=== PATIENT | male | born 1990 | race Caucasian/White ===

== ENCOUNTER 2019-10-05 19:24 | Inpatient (IN) | payer MEDICAID ==
[~2019-10-05] VITALS: Ht 180.3 cm; Wt 63.6 kg
[~2019-10-05 19:24] MED LIST: ONDA4TAB59 PO
[2019-10-05] MEDS ORDERED: normal saline 1000ML IV soln IV ONE (19:40)
[2019-10-05] MEDS ORDERED: CefTRIAXone 2gm/D5W 50ml 50 ML IV ONE (19:40)
[2019-10-05] MEDS ORDERED: vancomycin/NS 1 GM ADD-VANTAGE 250 ML IV ONE (19:40)
[2019-10-05] MEDS ORDERED: TETanus/Pertussis (Acell)/Diphther VAC/PF (Tdap-Adult) 0.5ml syringe IMVAC ONE (19:45)
[2019-10-05 19:51] LABS: BASOPHILS # (AUTO) 0.1 X10'3 (0-0.2); BASOPHILS % (AUTO) 0.5 % (0-1); EOSINOPHILS # (AUTO) 0.1 X10'3 (0-0.9); HEMATOCRIT 46.7 % (42.0-52.0); HEMOGLOBIN 15.9 g/dl (14.0-17.9); LYMPHOCYTES # (AUTO) 1.2 X10'3 (1.1-4.8); LYMPHOCYTES % (AUTO) 9.4 % (21-51); MEAN CORPUSCULAR HEMOGLOBIN 31.5 PG (27.0-31.0); MEAN CORPUSCULAR HGB CONC 34.1 g/dL (33.0-36.5); MEAN CORPUSCULAR VOLUME 92.4 FL (78-98); MEAN PLATELET VOLUME 6.9 FL (7.4-10.4); MONOCYTES # (AUTO) 0.8 X10'3 (0-0.9); MONOCYTES % (AUTO) 6.3 % (2-12); NEUTROPHILS # (AUTO) 10.5 X10'3 (1.8-7.7); NEUTROPHILS % (AUTO) 82.8 % (42-75); PLATELET COUNT 294 X10'3 (140-440); RED BLOOD COUNT 5.05 X10'6 (4.70-6.10); RED CELL DISTRIBUTION WIDTH 13.4 % (11.5-14.5); WHITE BLOOD COUNT 12.7 X10'3 (4.5-11.0)
[2019-10-05 20:04] LABS: PARTIAL THROMBOPLASTIN TIME 30 SECONDS (22-32)
[2019-10-05 20:08] LABS: ALANINE AMINOTRANSFERASE 60 U/L (12-78); ALBUMIN 3.8 G/DL (3.4-5.0); ALBUMIN/GLOBULIN RATIO 0.8 (1.1-1.5); ALKALINE PHOSPHATASE 199 IU/L (46-116); ANION GAP 4 (8-16); ASPARTATE AMINO TRANSFERASE 42 U/L (10-37); BILIRUBIN,TOTAL 0.5 MG/DL (0.1-1.0); BLOOD UREA NITROGEN 13 MG/DL (7-18); BUN/CREATININE RATIO 11.5 (5.4-32.0); CHLORIDE 100 MMOL/L (99-107); CREATININE 1.13 MG/DL (0.60-1.10); GLUCOSE 93 MG/DL (70-104); POTASSIUM 4.1 MMOL/L (3.5-5.1); SODIUM 136 MMOL/L (135-145); TOTAL CARBON DIOXIDE 31.8 MMOL/L (24-32); TOTAL PROTEIN 8.4 G/DL (6.4-8.2); eGFR 77 ML/MIN
[2019-10-05] MEDS ORDERED: morphine 2 MG/ML inj. syringe IV PRN (20:45)
[2019-10-05] MEDS: CefTRIAXone/D5W-Rocephin 1gm 50 ML IV SCH (20:45)
[2019-10-05] MEDS ORDERED: magnesium Cl slow-release 64mg tablet PO PRN (20:45)
[2019-10-05] MEDS ORDERED: magnesium 4gm in 100ml NS 100 ML IV PRN (20:45)
[2019-10-05] MEDS ORDERED: magnesium 2GM in 50ml NS 50 ML IV PRN (20:45)
[2019-10-05] MEDS ORDERED: ondansetron/PF 4mg/2ml inj IV PRN (20:45)
[2019-10-05] MEDS ORDERED: potassium Cl 20 mEq SR tablet PO PRN ×2 (20:45)
[2019-10-05] MEDS ORDERED: acetaminophen 325mg tablet PO PRN (20:45)
[2019-10-05] MEDS ORDERED: potassium CL 10mEq/100ml bag 100 ML IV PRN ×2 (20:45)
[2019-10-05] MEDS ORDERED: SULF1TAB49 PO (20:48)
[2019-10-05] MEDS ORDERED: temazepam 15mg capsule PO PRN (21:00)
--- NOTE | 2019-10-05 21:20 | NUR ---
Photo taken of Left Hand and placed on pt's chart.
[2019-10-05 21:30] VITALS: BP 138/66
--- NOTE | 2019-10-05 21:39 | NUR ---
Reported off to Prudence RN. Patient awake and alert on room air in no apparent distress. Call light and items of frequent use within reach.
--- NOTE | 2019-10-05 21:40 | NUR ---
I have reviewed and agree with all interventions, assessments performed and documented by AILYN Crockett.
[2019-10-05] MEDS: HYDROcodone/acetaminophen 5mg/325mg tablet PO PRN (21:49)
[2019-10-05] MEDS: normal saline 1000ml 1,000 ML IV SCH (21:50)
[2019-10-06 00:44] LABS: CLARITY,URINE CLEAR (Clear); COLOR,URINE YELLOW (Yellow); GLUCOSE, URINE NEGATIVE (Neg); KETONES,URINE NEGATIVE (Neg); LEUKOCYTE ESTERASE ,URINE NEGATIVE (Neg); NITRITES, URINE NEGATIVE (Neg); OCCULT BLOOD,URINE NEGATIVE (Neg); PH,URINE 7.5 (4.8-8.0); PROTEIN,URINE NEGATIVE (Neg)
[2019-10-06 00:48] LABS: UA COLLECTION TYPE CLN CATCH MIDSTREAM
[2019-10-06] MEDS: HYDROcodone/acetaminophen 5mg/325mg tablet PO PRN ×2 (04:47→19:54)
[2019-10-06 05:27] LABS: BASOPHILS # (AUTO) 0.1 X10'3 (0-0.2); BASOPHILS % (AUTO) 0.6 % (0-1); EOSINOPHILS % (AUTO) 0.4 % (0-6); HEMATOCRIT 44.6 % (42.0-52.0); HEMOGLOBIN 15.2 g/dl (14.0-17.9); LYMPHOCYTES # (AUTO) 1.2 X10'3 (1.1-4.8); LYMPHOCYTES % (AUTO) 11.2 % (21-51); MEAN CORPUSCULAR HEMOGLOBIN 31.4 PG (27.0-31.0); MEAN CORPUSCULAR VOLUME 92.3 FL (78-98); MEAN PLATELET VOLUME 7.5 FL (7.4-10.4); MONOCYTES # (AUTO) 1.2 X10'3 (0-0.9); MONOCYTES % (AUTO) 10.5 % (2-12); NEUTROPHILS # (AUTO) 8.5 X10'3 (1.8-7.7); NEUTROPHILS % (AUTO) 77.3 % (42-75); PLATELET COUNT 278 X10'3 (140-440); RED BLOOD COUNT 4.83 X10'6 (4.70-6.10); RED CELL DISTRIBUTION WIDTH 13.2 % (11.5-14.5)
[2019-10-06 05:29] LABS: ANION GAP 8 (8-16); BLOOD UREA NITROGEN 10 MG/DL (7-18); BUN/CREATININE RATIO 9.7 (5.4-32.0); CALCIUM 8.3 MG/DL (8.5-10.1); CHLORIDE 103 MMOL/L (99-107); CREATININE 1.03 MG/DL (0.60-1.10); GLUCOSE 127 MG/DL (70-104); MAGNESIUM 1.8 MG/DL (1.5-2.4); POTASSIUM 4.5 MMOL/L (3.5-5.1); SODIUM 135 MMOL/L (135-145); TOTAL CARBON DIOXIDE 23.8 MMOL/L (24-32); eGFR 85 ML/MIN
[2019-10-06 06:00] VITALS: BP 116/67
--- NOTE | 2019-10-06 06:19 | NUR ---
Problems reprioritized. Patient report given, questions answered & plan of care reviewed with CLIFTON ROBERTSON.
[2019-10-06] MEDS: CefTRIAXone/D5W-Rocephin 1gm 50 ML IV SCH (07:15)
[2019-10-06] MEDS: K and/or MAG REPLACEMENT MC SCH ×2 (08:00→20:00)
[2019-10-06] MEDS: docusate sod 100mg capsule PO SCH ×2 (08:00→19:53)
[2019-10-06] MEDS ORDERED: vancomycin/NS 1 GM ADD-VANTAGE 250 ML IV SCH (08:00)
[2019-10-06] MEDS: vancomycin/NS 1 GM ADD-VANTAGE 250 ML IV SCH ×2 (08:09→17:24)
[2019-10-06 09:48] VITALS: BP 121/72
[2019-10-06] MEDS ORDERED: cefepime 1GM in D5W 50mL 50 ML IV SCH (13:40)
[2019-10-06 15:01] LABS: URINE AMPHETAMINE SCREEN POSITIVE (Neg); URINE BARBITUATE SCREEN NEGATIVE (Neg); URINE BENZODIAZEPINES SCREEN NEGATIVE (Neg); URINE CANNABINOID SCREEN POSITIVE (Neg); URINE COCAINE SCREEN NEGATIVE (Neg); URINE METHADONE SCREEN NEGATIVE (Neg); URINE OPIATE SCREEN POSITIVE (Neg); URINE PHENCYCLIDINE SCREEN NEGATIVE (Neg)
[2019-10-06 18:00] VITALS: BP 126/72
--- NOTE | 2019-10-06 18:23 | NUR ---
Patient in room ORTH[facility] 4011. I have received report from Angela ROBERTSON and had the opportunity to ask questions and assume patient care.
--- NOTE | 2019-10-06 18:26 | NUR ---
Problems reprioritized. Patient report given, questions answered & plan of care reviewed with Karen ROBERTSON.
[2019-10-06] MEDS: lactobacillus rhamnosus 10,000 MMU CELLS/CAPSULE PO SCH (19:53)
[2019-10-06 22:00] VITALS: BP 106/59
[2019-10-06] MEDS: cefepime 1GM in D5W 50mL 50 ML IV SCH (22:02)
[2019-10-06] MEDS ORDERED: VANCOMYCIN LEVEL IV ONE (23:30)
[2019-10-07] MEDS: vancomycin/NS 1 GM ADD-VANTAGE 250 ML IV SCH (00:36)
[2019-10-07 05:32] LABS: BASOPHILS # (AUTO) 0.1 X10'3 (0-0.2); EOSINOPHILS # (AUTO) 0.2 X10'3 (0-0.9); EOSINOPHILS % (AUTO) 1.3 % (0-6); HEMOGLOBIN 15.2 g/dl (14.0-17.9); LYMPHOCYTES # (AUTO) 1.9 X10'3 (1.1-4.8); LYMPHOCYTES % (AUTO) 14.1 % (21-51); MEAN CORPUSCULAR HEMOGLOBIN 31.4 PG (27.0-31.0); MEAN CORPUSCULAR HGB CONC 33.8 g/dL (33.0-36.5); MEAN CORPUSCULAR VOLUME 92.9 FL (78-98); MEAN PLATELET VOLUME 7.6 FL (7.4-10.4); MONOCYTES # (AUTO) 1.2 X10'3 (0-0.9); MONOCYTES % (AUTO) 9.3 % (2-12); NEUTROPHILS # (AUTO) 9.9 X10'3 (1.8-7.7); NEUTROPHILS % (AUTO) 74.3 % (42-75); PLATELET COUNT 288 X10'3 (140-440); RED BLOOD COUNT 4.84 X10'6 (4.70-6.10); RED CELL DISTRIBUTION WIDTH 13.3 % (11.5-14.5); WHITE BLOOD COUNT 13.3 X10'3 (4.5-11.0)
[2019-10-07 05:46] LABS: ALBUMIN 2.9 G/DL (3.4-5.0); ANION GAP 8 (8-16); BLOOD UREA NITROGEN 11 MG/DL (7-18); BUN/CREATININE RATIO 13.3 (5.4-32.0); CALCIUM 8.8 MG/DL (8.5-10.1); CHLORIDE 103 MMOL/L (99-107); CREATININE 0.83 MG/DL (0.60-1.10); GLUCOSE 112 MG/DL (70-104); POTASSIUM 4.3 MMOL/L (3.5-5.1); SODIUM 138 MMOL/L (135-145); TOTAL CARBON DIOXIDE 27.5 MMOL/L (24-32); eGFR > 90 ML/MIN
[2019-10-07] MEDS: cefepime 1GM in D5W 50mL 50 ML IV SCH ×3 (06:29→21:45)
--- NOTE | 2019-10-07 06:36 | NUR ---
Problems reprioritized. Patient report given, questions answered & plan of care reviewed with CAROLIN ROBERTSON.
--- NOTE | 2019-10-07 06:56 | NUR ---
Patient in room ORTHO 4011. I have received report from Karen ROBERTSON and had the opportunity to ask questions and assume patient care.
[2019-10-07 07:04] VITALS: BP 113/58
[2019-10-07] MEDS: VANCOMYCIN 1,500MG inj. 1,500 MG in normal saline 500ml IV soln 500 ML IV SCH ×3 (07:55→23:10)
[2019-10-07] MEDS: lactobacillus rhamnosus 10,000 MMU CELLS/CAPSULE PO SCH ×2 (07:55→19:27)
[2019-10-07] MEDS: HYDROcodone/acetaminophen 5mg/325mg tablet PO PRN ×3 (07:57→19:27)
[2019-10-07] MEDS: docusate sod 100mg capsule PO SCH ×2 (08:00→19:27)
[2019-10-07] MEDS: K and/or MAG REPLACEMENT MC SCH ×2 (08:00→19:55)
--- NOTE | 2019-10-07 09:09 | NUR ---
Left hand wrapped in bulky dressing, will eval when Orhtopedist evals for surgery today Addendum: 10/07/19 at 0914 by Iliana Kothari RN Amended: Links added.
[2019-10-07 11:59] VITALS: BP 112/62
--- NOTE | 2019-10-07 12:27 | NUR ---
DR. NICOLE CASIANO, NO SURGERY TODAY. PHOTO TAKEN, RE-WRAPPED WOUND, CLEAN, DRY AND INTACT DRESSING
--- NOTE | 2019-10-07 14:58 | NUR ---
paged Dr. Lucio patient in room 4012 Shantal Moya Carleton J. would like a nicotine patch. He smokes 2 packs per day. Thank you, Sujata RN #[id number]
[2019-10-07 18:00] VITALS: BP 112/68
--- NOTE | 2019-10-07 18:00 | NUR ---
Problems reprioritized. Patient report given, questions answered & plan of care reviewed with Lisa ROBERTSON.
--- NOTE | 2019-10-07 18:53 | NUR ---
Patient in room ORTH[facility] 4011. I have received report from mg Barrientos and had the opportunity to ask questions and assume patient care.
[2019-10-07] MEDS: heparin, porcine 5000 units/ml vial SQ SCH (19:28)
[2019-10-07] MEDS: normal saline 1000ml 1,000 ML IV SCH (20:41)
[2019-10-07 22:00] VITALS: BP 118/62
[2019-10-07] MEDS ORDERED: VANCOMYCIN LEVEL IV ONE (23:30)
[2019-10-08] MEDS: HYDROcodone/acetaminophen 5mg/325mg tablet PO PRN ×5 (01:14→23:55)
[2019-10-08] MEDS: cefepime 1GM in D5W 50mL 50 ML IV SCH (05:07)
[2019-10-08 05:21] LABS: BASOPHILS # (AUTO) 0.1 X10'3 (0-0.2); BASOPHILS % (AUTO) 0.5 % (0-1); EOSINOPHILS # (AUTO) 0.2 X10'3 (0-0.9); EOSINOPHILS % (AUTO) 1.4 % (0-6); HEMATOCRIT 44.8 % (42.0-52.0); HEMOGLOBIN 15.3 g/dl (14.0-17.9); LYMPHOCYTES # (AUTO) 1.8 X10'3 (1.1-4.8); LYMPHOCYTES % (AUTO) 11.8 % (21-51); MEAN CORPUSCULAR HEMOGLOBIN 31.4 PG (27.0-31.0); MEAN CORPUSCULAR HGB CONC 34.1 g/dL (33.0-36.5); MEAN CORPUSCULAR VOLUME 91.9 FL (78-98); MEAN PLATELET VOLUME 7.4 FL (7.4-10.4); MONOCYTES # (AUTO) 1.2 X10'3 (0-0.9); MONOCYTES % (AUTO) 8.1 % (2-12); NEUTROPHILS # (AUTO) 11.7 X10'3 (1.8-7.7); NEUTROPHILS % (AUTO) 78.2 % (42-75); PLATELET COUNT 316 X10'3 (140-440); RED BLOOD COUNT 4.88 X10'6 (4.70-6.10)
[2019-10-08 05:36] LABS: ALBUMIN 2.8 G/DL (3.4-5.0); ANION GAP 6 (8-16); BLOOD UREA NITROGEN 10 MG/DL (7-18); BUN/CREATININE RATIO 11.2 (5.4-32.0); CALCIUM 8.6 MG/DL (8.5-10.1); CHLORIDE 103 MMOL/L (99-107); CREATININE 0.89 MG/DL (0.60-1.10); GLUCOSE 107 MG/DL (70-104); POTASSIUM 4.2 MMOL/L (3.5-5.1); SODIUM 138 MMOL/L (135-145); TOTAL CARBON DIOXIDE 28.6 MMOL/L (24-32); eGFR > 90 ML/MIN
[2019-10-08 06:00] VITALS: BP 126/74
--- NOTE | 2019-10-08 06:23 | NUR ---
Problems reprioritized. Patient report given, questions answered & plan of care reviewed with mg Roy.
--- NOTE | 2019-10-08 06:39 | NUR ---
Patient in room ORTH[facility] 4011. I have received report from JEANNIE ROBERTSON and had the opportunity to ask questions and assume patient care.
[2019-10-08] MEDS: heparin, porcine 5000 units/ml vial SQ SCH ×2 (07:56→19:16)
[2019-10-08] MEDS: docusate sod 100mg capsule PO SCH ×2 (07:56→19:21)
[2019-10-08] MEDS: lactobacillus rhamnosus 10,000 MMU CELLS/CAPSULE PO SCH ×2 (07:56→19:15)
[2019-10-08] MEDS: VANCOMYCIN 1,500MG inj. 1,500 MG in normal saline 500ml IV soln 500 ML IV SCH ×3 (07:56→23:55)
[2019-10-08] MEDS: K and/or MAG REPLACEMENT MC SCH ×2 (08:00→19:21)
[2019-10-08 11:05] VITALS: BP 109/50
[2019-10-08 18:00] VITALS: BP 124/71
--- NOTE | 2019-10-08 18:08 | NUR ---
Problems reprioritized. Patient report given, questions answered & plan of care reviewed with AILYN henderson.
--- NOTE | 2019-10-08 18:10 | NUR ---
Problems reprioritized. Patient report given, questions answered & plan of care reviewed with mg Roy.
[2019-10-08 22:00] VITALS: BP 107/48
[2019-10-09 05:52] LABS: BASOPHILS # (AUTO) 0.1 X10'3 (0-0.2); BASOPHILS % (AUTO) 0.6 % (0-1); EOSINOPHILS # (AUTO) 0.5 X10'3 (0-0.9); EOSINOPHILS % (AUTO) 3.9 % (0-6); HEMATOCRIT 45.1 % (42.0-52.0); HEMOGLOBIN 15.1 g/dl (14.0-17.9); LYMPHOCYTES % (AUTO) 16.8 % (21-51); MEAN CORPUSCULAR HEMOGLOBIN 31.2 PG (27.0-31.0); MEAN CORPUSCULAR HGB CONC 33.6 g/dL (33.0-36.5); MEAN PLATELET VOLUME 7.3 FL (7.4-10.4); MONOCYTES % (AUTO) 8.1 % (2-12); NEUTROPHILS # (AUTO) 8.4 X10'3 (1.8-7.7); NEUTROPHILS % (AUTO) 70.6 % (42-75); PLATELET COUNT 333 X10'3 (140-440); RED BLOOD COUNT 4.85 X10'6 (4.70-6.10); RED CELL DISTRIBUTION WIDTH 12.8 % (11.5-14.5); WHITE BLOOD COUNT 11.9 X10'3 (4.5-11.0)
[2019-10-09 06:01] LABS: ALBUMIN 2.7 G/DL (3.4-5.0); ANION GAP 6 (8-16); BLOOD UREA NITROGEN 11 MG/DL (7-18); BUN/CREATININE RATIO 13.8 (5.4-32.0); CALCIUM 9.1 MG/DL (8.5-10.1); CHLORIDE 104 MMOL/L (99-107); GLUCOSE 110 MG/DL (70-104); MAGNESIUM 2.1 MG/DL (1.5-2.4); POTASSIUM 4.2 MMOL/L (3.5-5.1); SODIUM 138 MMOL/L (135-145); TOTAL CARBON DIOXIDE 27.7 MMOL/L (24-32); eGFR > 90 ML/MIN
--- NOTE | 2019-10-09 06:40 | NUR ---
Problems reprioritized. Patient report given, questions answered & plan of care reviewed with AILYN CARLISLE.
[2019-10-09 07:04] VITALS: BP 96/79
[2019-10-09] MEDS: VANCOMYCIN 1,500MG inj. 1,500 MG in normal saline 500ml IV soln 500 ML IV SCH ×3 (07:54→23:45)
[2019-10-09] MEDS: lactobacillus rhamnosus 10,000 MMU CELLS/CAPSULE PO SCH ×2 (07:55→19:49)
[2019-10-09] MEDS: HYDROcodone/acetaminophen 5mg/325mg tablet PO PRN ×2 (07:55→19:50)
[2019-10-09] MEDS: K and/or MAG REPLACEMENT MC SCH ×2 (07:55→20:00)
[2019-10-09] MEDS: heparin, porcine 5000 units/ml vial SQ SCH ×2 (08:00→19:49)
[2019-10-09] MEDS: docusate sod 100mg capsule PO SCH ×2 (08:00→19:48)
--- NOTE | 2019-10-09 12:26 | NUR ---
Initial: Pt admit w/ L hand laceration and sepsis per MD. Positive for meth on admit. PO 75-100% avg regular diet meeting needs given DX and current wt. LBM 10/07. No nutrition concerns at this time. Will continue to monitor. Rec: 1. continue regular diet 2. bowel care as needed 3. wt per rx Addendum: 10/09/19 at [address] Amended: Links added.
[2019-10-09 18:00] VITALS: BP 151/73
--- NOTE | 2019-10-09 18:22 | NUR ---
REPORT TO SHANNON ROBERTSON
--- NOTE | 2019-10-09 18:40 | NUR ---
Patient in room [facility]TH[facility] 4011. I have received report from Susan ROBERTSON and had the opportunity to ask questions and assume patient care. Pt sitting up in bed eating dinner, no signs of distress, will continue to monitor.
[2019-10-09 22:12] VITALS: BP 127/74
[2019-10-10] VITALS (16 sets, daily range): BP systolic 108–153; BP diastolic 61–97
[2019-10-10 06:10] LABS: ALBUMIN 2.7 G/DL (3.4-5.0); ANION GAP 9 (8-16); BASOPHILS # (AUTO) 0.1 X10'3 (0-0.2); BLOOD UREA NITROGEN 14 MG/DL (7-18); BUN/CREATININE RATIO 15.9 (5.4-32.0); CHLORIDE 104 MMOL/L (99-107); CREATININE 0.88 MG/DL (0.60-1.10); EOSINOPHILS # (AUTO) 0.7 X10'3 (0-0.9); EOSINOPHILS % (AUTO) 6.3 % (0-6); GLUCOSE 106 MG/DL (70-104); HEMATOCRIT 44.1 % (42.0-52.0); HEMOGLOBIN 15.1 g/dl (14.0-17.9); LYMPHOCYTES # (AUTO) 2.5 X10'3 (1.1-4.8); LYMPHOCYTES % (AUTO) 24.2 % (21-51); MEAN CORPUSCULAR HEMOGLOBIN 31.7 PG (27.0-31.0); MEAN CORPUSCULAR HGB CONC 34.2 g/dL (33.0-36.5); MEAN CORPUSCULAR VOLUME 92.7 FL (78-98); MEAN PLATELET VOLUME 7.3 FL (7.4-10.4); MONOCYTES # (AUTO) 0.9 X10'3 (0-0.9); MONOCYTES % (AUTO) 8.4 % (2-12); NEUTROPHILS # (AUTO) 6.3 X10'3 (1.8-7.7); NEUTROPHILS % (AUTO) 60.1 % (42-75); PLATELET COUNT 365 X10'3 (140-440); POTASSIUM 4.3 MMOL/L (3.5-5.1); RED BLOOD COUNT 4.76 X10'6 (4.70-6.10); RED CELL DISTRIBUTION WIDTH 13.2 % (11.5-14.5); SODIUM 139 MMOL/L (135-145); TOTAL CARBON DIOXIDE 26.4 MMOL/L (24-32); WHITE BLOOD COUNT 10.4 X10'3 (4.5-11.0); eGFR > 90 ML/MIN
--- NOTE | 2019-10-10 06:50 | NUR ---
Problems reprioritized. Patient report given, questions answered & plan of care reviewed with Alexa ROBERTSON.
[2019-10-10] MEDS: docusate sod 100mg capsule PO SCH ×2 (08:00→20:00)
[2019-10-10] MEDS: lactobacillus rhamnosus 10,000 MMU CELLS/CAPSULE PO SCH ×2 (08:00→20:24)
[2019-10-10] MEDS: heparin, porcine 5000 units/ml vial SQ SCH ×2 (08:00→20:24)
[2019-10-10] MEDS: K and/or MAG REPLACEMENT MC SCH ×2 (08:00→20:00)
[2019-10-10] MEDS: VANCOMYCIN 1,500MG inj. 1,500 MG in normal saline 500ml IV soln 500 ML IV SCH ×3 (09:26→23:23)
[2019-10-10] MEDS ORDERED: gadobutrol 10mmol/10ml inj. IV ONE (11:53)
[2019-10-10] MEDS ORDERED: ceFAZolin 1000mg inj ONE (13:13)
[2019-10-10] MEDS ORDERED: sevoflurane 250ml liquid IH ONE (13:16)
[2019-10-10] MEDS ORDERED: midazolam 2 mg/2 ml injection ONE (13:18)
[2019-10-10] MEDS ORDERED: fentaNYL/PF 50MCG/1 ML 2ML syringe ONE (13:18)
[2019-10-10] MEDS ORDERED: propofol inj 20 ML IV ONE (14:09)
--- NOTE | 2019-10-10 14:12 | NUR ---
ARRIVED IN PACU VIA BED WITH DR Sandoval IN ATTENDANCE. REPORT RECEIVED. PT AWEKENED ON ARRIVAL, AND ATTEMPTED TO PULL LMA, LMA REMOVED BY NURSE. PT A LITTLE RESTLESS, AND REFUSES TO WEAR FACE MASK. NO C/O PAIN. VS STABLE. VS RECORD FOR 1427 IS ADMIT PACU ASSESMANT, ACTUALLY SHOULD BE 1412
[2019-10-10] MEDS ORDERED: ringers solution, lacted 1,000 ML IV SCH (14:22)
[2019-10-10] MEDS ORDERED: meperidine/PF 25mg/ml syringe IV PRN ×3 (14:25)
[2019-10-10] MEDS ORDERED: ondansetron/PF 4mg/2ml inj IV PRN (14:25)
[2019-10-10] MEDS ORDERED: morphine 4 MG/ML inj SYRINge IV PRN (14:25)
[2019-10-10] MEDS ORDERED: morphine 2 MG/ML inj. syringe IV PRN (14:25)
[2019-10-10] MEDS ORDERED: proCHLORperazine 10 MG/2 ml inj IV PRN (14:25)
--- NOTE | 2019-10-10 14:38 | NUR ---
SLEEPING. VS STABLE.
--- NOTE | 2019-10-10 15:02 | NUR ---
TRANSPORTED TO [facility] [place]. THORNTON IN ROOM TO ACCEPT PT
[2019-10-10] MEDS: HYDROcodone/acetaminophen 5mg/325mg tablet PO PRN ×2 (15:18→20:25)
--- NOTE | 2019-10-10 18:25 | NUR ---
Patient in room ORTHO 4009. I have received report from Alexa-AILYN, and had the opportunity to ask questions and assume patient care.
[2019-10-11 05:00] VITALS: BP 115/68
[2019-10-11 06:00] VITALS: BP 115/68
--- NOTE | 2019-10-11 06:23 | NUR ---
Problems reprioritized. Patient report given to Tristan, questions answered & plan of care reviewed with .
--- NOTE | 2019-10-11 06:42 | NUR ---
Patient in room ORTHO 4011. I have received report from Drake and had the opportunity to ask questions and assume patient care.
[2019-10-11] MEDS: K and/or MAG REPLACEMENT MC SCH (07:12)
[2019-10-11] MEDS: lactobacillus rhamnosus 10,000 MMU CELLS/CAPSULE PO SCH (07:38)
[2019-10-11] MEDS: docusate sod 100mg capsule PO SCH (07:38)
[2019-10-11] MEDS: VANCOMYCIN 1,500MG inj. 1,500 MG in normal saline 500ml IV soln 500 ML IV SCH (07:38)
[2019-10-11] MEDS: heparin, porcine 5000 units/ml vial SQ SCH (07:39)
[2019-10-11 08:51] LABS: BASOPHILS # (AUTO) 0.1 X10'3 (0-0.2); BASOPHILS % (AUTO) 0.8 % (0-1); EOSINOPHILS # (AUTO) 0.4 X10'3 (0-0.9); EOSINOPHILS % (AUTO) 6.4 % (0-6); HEMATOCRIT 42.6 % (42.0-52.0); HEMOGLOBIN 14.3 g/dl (14.0-17.9); LYMPHOCYTES # (AUTO) 1.6 X10'3 (1.1-4.8); LYMPHOCYTES % (AUTO) 23.9 % (21-51); MEAN CORPUSCULAR HEMOGLOBIN 31.1 PG (27.0-31.0); MEAN CORPUSCULAR HGB CONC 33.5 g/dL (33.0-36.5); MEAN CORPUSCULAR VOLUME 92.8 FL (78-98); MEAN PLATELET VOLUME 6.6 FL (7.4-10.4); MONOCYTES # (AUTO) 0.4 X10'3 (0-0.9); MONOCYTES % (AUTO) 5.5 % (2-12); NEUTROPHILS # (AUTO) 4.4 X10'3 (1.8-7.7); NEUTROPHILS % (AUTO) 63.4 % (42-75); PLATELET COUNT 344 X10'3 (140-440); RED BLOOD COUNT 4.59 X10'6 (4.70-6.10); RED CELL DISTRIBUTION WIDTH 12.8 % (11.5-14.5); WHITE BLOOD COUNT 6.9 X10'3 (4.5-11.0)
[2019-10-11 10:00] VITALS: BP 114/70
[2019-10-11 10:14] LABS: CREATININE 0.86 MG/DL (0.60-1.10); eGFR > 90 ML/MIN
[2019-10-11] MEDS: HYDROcodone/acetaminophen 5mg/325mg tablet PO PRN (10:33)
--- NOTE | 2019-10-11 13:17 | NUR ---
[facility]ane [id number] Re: Umang Murguia Patient is wanting to leave AMA right now.
--- NOTE | 2019-10-11 13:30 | NUR ---
patient wanting to leave AMA. Educated patient on medical advice and will be DC home with pain and ABX medication.
[2019-10-11] MEDS ORDERED: SULF1TAB49 PO (13:32)
[2019-10-11] MEDS ORDERED: HYDR-4383 PO (13:32)
--- NOTE | 2019-10-11 13:38 | NUR ---
Safe DC home. all personal items with patient
== END 2019-10-11 14:00 | disposition home or self-care (01) | DRG 720 ==
LOC: ER 19:25 → ED HOLD 20:41 → UNDOADMIN 20:55 → ED HOLD 21:30 → ORTHO 4S 21:30
PROVIDERS: ADMIT Internal Medicine; ATTEND Internal Medicine
PROC: 0X9K0ZZ Drainage of Left Hand, Open Approach (ICD-10-PCS; principal; 2019-10-10 13:16)
DX: A41.9 Sepsis, unspecified organism (principal); F17.210 Nicotine dependence, cigarettes, uncomplicated; J45.909 Unspecified asthma, uncomplicated; L02.512 Cutaneous abscess of left hand; L03.012 Cellulitis of left finger; L03.113 Cellulitis of right upper limb; S61.211A Laceration without foreign body of left index finger without damage to nail, initial encounter; Z59.0 Homelessness
CPT/HCPCS: 36415; 73140; 73223; 80048; 80053; 80202; 80305; 81003; 82565; 83605; 83735; 84145; 85025; 85610; 85730; 87040; 87070; 87075; 87077; 87081; 87102; 87186; 90471; 90715; 96365; 99285; A4618; A6446; A6449; A7000; A9585; G0378; J0690; J0692; J0696; J1644; J2250; J2270; J2704; J3010; J3370; J7030; J7040

== ENCOUNTER 2023-03-19 17:13 | Emergency (ER) | payer MEDICAID, OTHER ==
[~2023-03-19] VITALS: Ht 177.8 cm; Wt 68.2 kg
[~2023-03-19 17:13] MED LIST changes: +HYDR-4383 PO; -ONDA4TAB59 PO
[2023-03-19 17:35] VITALS: BP 111/76; PULSE 106; RESP 14; O2SAT 98
== END 2023-03-19 19:23 | disposition home or self-care (01) ==
LOC: ER 17:14
DX: M54.59 Other low back pain (principal); Z00.8 Encounter for other general examination
CPT/HCPCS: 99281

== ENCOUNTER 2024-01-28 08:04 | Emergency (ER) | payer MEDICAID ==
[~2024-01-28] VITALS: Ht 180.3 cm; Wt 70.7 kg
[2024-01-28 08:14] VITALS: BP 130/78; PULSE 84; RESP 16; TEMP 97.1; O2SAT 97
[2024-01-28] MEDS ORDERED: HYDR-3965 PO (08:28)
[2024-01-28] MEDS ORDERED: AMOX-580 PO (08:28)
== END 2024-01-28 08:37 | disposition home or self-care (01) ==
LOC: ER 08:04
DX: K08.89 Other specified disorders of teeth and supporting structures (principal); J45.909 Unspecified asthma, uncomplicated; Z88.1 Allergy status to other antibiotic agents; Z79.899 Other long term (current) drug therapy
CPT/HCPCS: 99283

== ENCOUNTER 2024-09-23 20:42 | Emergency (ER) | payer MEDICAID ==
[~2024-09-23] VITALS: Ht 180.3 cm; Wt 100.0 kg
[2024-09-23 20:46] VITALS: TEMP 100.3
[2024-09-23] MEDS: benzonatate 100mg capsule PO ONE (22:00)
[2024-09-23] MEDS: predniSONE 20 mg tablet PO ONE (22:00)
[2024-09-23] MEDS: albuterol 2.5 MG/3 ML nebule CONTNEB PRN (22:10)
[2024-09-23 22:15] VITALS: PULSE 102; RESP 20; O2SAT 96
[2024-09-23] MEDS ORDERED: ALBU18HF2 INH (22:51)
[2024-09-23] MEDS ORDERED: BENZ-38 PO (22:51)
[2024-09-23] MEDS ORDERED: AZIT-164 PO (22:51)
[2024-09-23 22:57] VITALS: PULSE 119; RESP 18; O2SAT 99
[2024-09-23 23:14] VITALS: BP 133/78; PULSE 120; RESP 18; O2SAT 97
== END 2024-09-23 23:16 | disposition home or self-care (01) ==
LOC: ER 20:42
DX: J40 Bronchitis, not specified as acute or chronic (principal); Z88.1 Allergy status to other antibiotic agents; Z20.822 Contact with and (suspected) exposure to COVID-19
CPT/HCPCS: 36415; 71046; 87502; 87503; 87811; 94644; 99285; J7512; 94640; 94760; 99284